=== PATIENT | female | born 1945 | race Caucasian/White ===

== ENCOUNTER → 2017-02-06 | Outpatient (CLI) | payer MEDICARE, OTHER ==
[~2017-02-06] MED LIST: CIPRO250 MG PO; CRESTOR; OMEPRAZOLE40 MG PO; PROTONIX; ZOCOR PO
--- NOTE | ~2017-02-06 | MY11 ---
[facility] A Service of [facility] RADIOLOGY TEXT RESULTS PATIENT: [facility]IAH [id number] UNIT #: [id number] AGE: [address]: Leah Shetty MD SEX: F ORDER DR: [id number] [facility] [address] [place], [place] [address] [id number] O MR#: [id number] Acc #: [id number] NAME: KIAH PARRA. : 1945 SEX: F STUDY DATE/TIME: 02/06/2017 10:15 UNIT: [facility] ROOM: STUDY DESCRIPTION: MY Mammogram Screening Dig Oliver Attending Physician: Leah Shetty M.D. Referring Physician: Leah Shetty M.D. Ordering Physician: Leah Shetty M.D. Primary Care Physician: Leah Shetty M.D. MEDICAL IMAGING REPORT This report is preliminary unless electronic signature is present EXAM Digital screening mammogram 02/06/2017, [facility] HISTORY 72-year-old woman positive family history, mother at age 52. Annual screen. COMPARISON Mammograms date to 11/03/2008 with most recent 02/04/2016 TECHNIQUE Digital imaging of each breast was completed utilizing screening protocol. Review includes FDA-approved CAD device. FINDINGS Breast parenchyma is partially fatty replaced and mildly heterogeneous with subareolar duct prominence and fibroglandular opacities in remaining upper outer quadrants bilaterally. There is no interval occurring mass. There are no suspicious micro calcifications and no architectural deformity. IMPRESSION Benign mammogram. Annual screening recommended. Patient's over the age of 40 are entered into a reminder system with target due date for the next mammogram. A result letter will be sent to the patient. BIRADS: 2 Benign findings. Dictated by... Chris Lindo M.D. [facility] A Service of [facility] RADIOLOGY TEXT RESULTS PATIENT: KIAH PARRA [id number] : [birth year] UNIT #: [id number] AGE: [address]: Leah Shetty MD SEX: F ORDER DR: THIS IS AN ELECTRONICALLY VERIFIED REPORT Chris Lindo M.D. at 02/06/2017 1:32 PM JBB/kendall TD: 02/06/2017 11:15 JOB #: [id number] MEDICAL IMAGING REPORT Page 1 of 1 COPY
== END | disposition home or self-care (01) ==
LOC: CWCC 09:36
DX: Z12.31 Encounter for screening mammogram for malignant neoplasm of breast (principal); Z80.3 Family history of malignant neoplasm of breast
CPT/HCPCS: G0202

== ENCOUNTER → 2017-06-30 | Outpatient (CLI) | payer MEDICARE, OTHER ==
--- NOTE | ~2017-06-30 | TH ---
Unit #: [id number] #: [id number] Patient: KIAH PARRA [id number] [address] [address] [id number] O MR#: [id number] NAME: KIAH PARRA. : 1945 SEX: F STUDY DATE/TIME: 06/30/2017 UNIT: [facility] ROOM: STUDY DESCRIPTION: Exercise stress test - Nuclear Attending Physician: Leah Shetty M.D. Referring Physician: eLah Shetty M.D. Primary Care Physician: Leah Shetty M.D. CARDIOLOGY REPORT PROCEDURE PERFORMED Exercise Cardiolite stress test - Nuclear portion. PROCEDURE Using technetium 99m-labeled Cardiolite, rest and stress SPECT images were obtained. Multiple SPECT images were obtained in various views, including horizontal and vertical long axis and short axis views of the left ventricle. Images were obtained by gated SPECT method. The patient was administered 10.8 mCi of Cardiolite at rest. The patient was administered 30.3 mCi of Cardiolite at peak exercise. Total exercise time is 7 minutes. On the stress images, there is normal perfusion noted. The rest images show normal perfusion. Comparing the rest and stress images, there is no stress-induced ischemia noted. The left ventricular ejection fraction is calculated to be 74%. There is no focal wall motion abnormality seen. CONCLUSION 1. No stress-induced ischemia noted. 2. The left ventricular ejection fraction is calculated to be 74%. 3. There is no focal wall motion abnormality seen. 4. Normal exercise Cardiolite stress test. Dictated by... Neri Ingram/franklin TD: 06/30/2017 13:31 JOB #: [id number] CARDIOLOGY REPORT Page 1 of 1 X Nallely Zendejas MD <ELECTRONICALLY SIGNED> 07/27/17 1524 CARDIOLOGY REPORT
--- NOTE | ~2017-06-30 | ST ---
Unit #: [id number] #: [id number] Patient: KIAH PARRA [id number] [address] [address] [id number] O MR#: [id number] NAME: KIAH PARRA. : 1945 SEX: F STUDY DATE/TIME: 06/30/2017 UNIT: [facility] ROOM: STUDY DESCRIPTION: EKG portion of exer Cardiolite Attending Physician: Leah Shetty M.D. Referring Physician: Leah Shetty M.D. Primary Care Physician: Leah Shetty M.D. CARDIOLOGY REPORT EXAM EKG portion of exercise Cardiolite. REASON FOR EXAM Chest pain and palpitations. DISCUSSION Baseline EKG reveals sinus rhythm with a ventricular rate of [address]-T wave changes noted. The patient exercised on the treadmill according to Chon protocol for 7 minutes, achieving a workload of 7.30 METs. Maximal heart rate was 153 BPM, which represents 103% of the maximal age predicted heart rate. The blood pressure was 188/92 mmHg. There were no complaints of chest pain. There were occasional PACs and PVCs, as well as one couplet of PVCs. There were no ST-T wave changes to suggest ischemia. The patient's blood pressure was elevated at baseline at 140/84 mmHg. Her maximum blood pressure was 188/92 and 161/103. She denies hypertension. She has been advised to follow her blood pressure readings and to speak with Dr. Shetty as an outpatient. IMPRESSION 1. Negative EKG portion of exercise Cardiolite stress test. 2. There were no complaints of chest pain. 3. There were occasional PACs, PVCs and one couplet of PVCs. 4. There were no ST or T wave changes to suggestion ischemia. 5. Patient's blood pressure was elevated at baseline and during the test. She has been recommended to monitor her blood pressure readings as an outpatient speak with her primary care provider. Dictated by... Mayra Wadsworth APRN for Neri Ingram TD: 06/30/2017 12:44 JOB #: [id number] Unit #: [id number] #: [id number] Patient: KIAH PARRA CARDIOLOGY REPORT Page 1 of 1 X CARDIOLOGY REPORT
== END | disposition home or self-care (01) ==
LOC: CNUC 07:39
DX: R07.9 Chest pain, unspecified (principal)
CPT/HCPCS: 78452; 93017; A9500